=== PATIENT | female | born 1945 | race Caucasian/White ===

== ENCOUNTER → 2017-02-03 | Outpatient (CLI) | payer MEDICARE ==
[~2017-02-03] MED LIST: AUGMENTIN 500 M1 TAB PO; CLARITIN-D 24 H1 TAB PO; EC NAPROSYN500 MG PO; FLEXERIL10 MG PO; HYDROCODONE BIT1 T11 PO; LISINOPRIL10 MG PO; NAPROSYN500 MG PO; OCUVITE1 TA1 PO; PREVACID15 MG PO; TYLENOL W/CODEI1 TA2 PO; VERAPAMIL HCL240 M2 PO; VICODIN 500 MG-1 TAB PO
== END | disposition home or self-care (01) ==
LOC: CT 08:44
DX: M16.12 Unilateral primary osteoarthritis, left hip (principal); K44.9 Diaphragmatic hernia without obstruction or gangrene; K57.30 Diverticulosis of large intestine without perforation or abscess without bleeding; Z90.49 Acquired absence of other specified parts of digestive tract; Z90.710 Acquired absence of both cervix and uterus; Z90.89 Acquired absence of other organs

== ENCOUNTER → 2017-02-17 | Outpatient (CLI) | payer MEDICARE | END | disposition home or self-care (01) | LOC: RAD 11:21 | DX: Z13.820 Encounter for screening for osteoporosis (principal); R29.890 Loss of height; Z78.0 Asymptomatic menopausal state ==

== ENCOUNTER → 2019-03-07 | Outpatient (CLI) | payer MEDICARE | END | disposition home or self-care (01) | LOC: MAMMO 08:50 | DX: Z12.31 Encounter for screening mammogram for malignant neoplasm of breast (principal); M85.88 Other specified disorders of bone density and structure, other site; Z78.0 Asymptomatic menopausal state ==

== ENCOUNTER → 2019-08-19 | Outpatient (CLI) | payer MEDICARE | END | disposition home or self-care (01) | LOC: RAD 09:59 | DX: R20.0 Anesthesia of skin (principal); R20.2 Paresthesia of skin ==

== ENCOUNTER 2022-07-25 12:25 | Emergency (ER) | payer MEDICARE ==
[~2022-07-25] VITALS: Ht 167.6 cm; Wt 68.0 kg
[2022-07-25 13:50] LABS: BILIRUBIN Negative (Negative); BLOOD 2+ (Negative); CLARITY Cloudy (Clear); COLOR Yellow (Yellow); GLUCOSE 3+ (Negative); KETONE 2+ (Negative); LEUKO ESTERASE Negative (Negative); NITRITE Negative (Negative); PH 5.5 (4.5-8.0); SPECIFIC GRAVITY 1.025 (1.001-1.030)
[2022-07-25 14:01] LABS: BACTERIA 2+; MUCOUS 2+
[2022-07-25 14:22] LABS: HEMATOCRIT 44.5 % (37.0-47.0); MEAN CORPUSCULAR HGB 24.8 pg (27.0-31.0); PLATELET COUNT AUTOMATED 582 10*3/uL (130-400); RED BLOOD COUNT 5.56 10*6/uL (4.10-5.10); RED CELL DISTRI WIDTH 20.7 % (0-14.5); WHITE BLOOD COUNT 12.8 10*3/uL (4.8-10.8)
[2022-07-25 14:25] LABS: MANUAL DIFF REFLEX YES
[2022-07-25 14:36] LABS: ACT PARTIAL THROMBO TIME 27.6 SECONDS (20.0-32.1); INTERNATIONAL NORM RATIO 1.2 (2.0-3.5)
[2022-07-25 14:47] LABS: ALKALINE PHOSPHATASE 111 U/L (46-116); BASOPHILS 1 % (0-1); BUN 11 mg/dl (9-23); CHLORIDE 98 mmol/L (98-107); LIPASE 22 U/L (12-53); POTASSIUM 2.9 mmol/L (3.4-5.1); SGPT/ALT 8 U/L (10-49); TOTAL CELLS COUNTED 100 #CELLS; TOTAL PROTEIN 8.3 gm/dL (6.0-8.0)
[2022-07-25 14:48] LABS: PLATELET SUFFICIENCY HIGH (NORMAL)
[2022-07-25 21:06] VITALS: BP 200/100
== END 2022-07-26 02:23 | disposition short-term general hospital (02) ==
LOC: ED 12:25
PROVIDERS: Emergency Medicine
DX: A41.9 Sepsis, unspecified organism (principal); R65.20 Severe sepsis without septic shock; K65.1 Peritoneal abscess; R11.2 Nausea with vomiting, unspecified; Z79.899 Other long term (current) drug therapy; Z90.711 Acquired absence of uterus with remaining cervical stump; Z90.49 Acquired absence of other specified parts of digestive tract

== ENCOUNTER 2023-01-12 18:36 | Emergency (ER) | payer MEDICARE ==
[~2023-01-12] VITALS: Ht 167.6 cm; Wt 76.2 kg
[~2023-01-12 18:36] MED LIST changes: +COREG6.25 MG PO; +LIPITOR10 MG PO; +METOCLOPRAMIDE5 MG PO; +NEXIUM40 MG PO; +NORVASC5 MG PO; +Ondansetron4 MG PO
[2023-01-12 19:27] VITALS: BP 168/98
[2023-01-12 19:59] LABS: HEMATOCRIT 44.7 % (37.0-47.0); MEAN CELL VOLUME 83.9 fl (81.0-99.0); MEAN CORPUSCULAR HGB 27.6 pg (27.0-31.0); MEAN CORPUSCULAR HGB CONC 32.9 g/dl (33.0-37.0); MEAN PLATELET VOLUME 9.7 fl (9.6-12.3); PLATELET COUNT AUTOMATED 538 10*3/uL (130-400); RED BLOOD COUNT 5.33 10*6/uL (4.10-5.10); RED CELL DISTRI WIDTH 14.1 % (0-14.5); WHITE BLOOD COUNT 12.4 10*3/uL (4.8-10.8)
[2023-01-12 20:10] LABS: MANUAL DIFF REFLEX YES
[2023-01-12 20:20] LABS: BASOPHILS 1 % (0-1); TOTAL CELLS COUNTED 100 #CELLS
[2023-01-12 20:21] LABS: PLATELET SUFFICIENCY HIGH (NORMAL)
[2023-01-12 20:22] LABS: ALKALINE PHOSPHATASE 121 U/L (46-116); BUN 8 mg/dl (9-23); BURR CELLS FEW; CHLORIDE 105 mmol/L (98-107); LIPASE 26 U/L (12-53); OVALOCYTES FEW; POTASSIUM 3.4 mmol/L (3.4-5.1); SGPT/ALT 10 U/L (5-49); TOTAL PROTEIN 7.5 gm/dL (6.0-8.0)
[2023-01-12 20:23] LABS: ATYPICAL LYMPHS 3 % (0-0)
[2023-01-12 21:11] LABS: BILIRUBIN Negative (Negative); BLOOD Negative (Negative); CLARITY Clear (Clear); COLOR Dark Yellow (Yellow); GLUCOSE Negative (Negative); KETONE 2+ (Negative); LEUKO ESTERASE Trace (Negative); NITRITE Negative (Negative); PH 6.5 (4.5-8.0)
[2023-01-12 21:18] LABS: URINE AMPHETAMINES Negative (1000ng/ml); URINE BARBITURATES Negative (200ng/ml); URINE BENZODIAZEPINES Negative (200ng/ml); URINE CANNABINOIDS (THC) Negative (50ng/ml); URINE COCAINE Negative (300ng/ml); URINE METHADONE Negative (300ng/ml); URINE OPIATES Negative (300ng/ml); URINE PHENCYCLIDINE Negative (25ng/ml)
[2023-01-12 21:22] LABS: BACTERIA 3+; EPITHELIAL CELLS 0-2; MUCOUS 2+
[2023-01-12] MEDS ORDERED: CIPRO500 MG PO (22:42)
== END 2023-01-12 22:53 | disposition home or self-care (01) ==
LOC: ED 18:36
PROVIDERS: Internal Medicine
DX: N39.0 Urinary tract infection, site not specified (principal); I10 Essential (primary) hypertension; R11.10 Vomiting, unspecified; R10.2 Pelvic and perineal pain; Z90.89 Acquired absence of other organs; Z90.711 Acquired absence of uterus with remaining cervical stump; Z90.49 Acquired absence of other specified parts of digestive tract; Z98.890 Other specified postprocedural states; Z79.899 Other long term (current) drug therapy

== ENCOUNTER → 2024-05-03 | Outpatient (CLI) | payer MEDICARE ==
[~2024-05-03] MED LIST changes: +CIPRO500 MG PO; +IOHEXOL 350 MG/ML 100 ML VIAL IV ONE; +SODIUM CHLORIDE 0.9% 100 ML BAG IV ONE
== END | disposition home or self-care (01) ==
LOC: CT 15:00
PROVIDERS: ATTEND Nurse Practitioner
DX: K57.30 Diverticulosis of large intestine without perforation or abscess without bleeding (principal); K44.9 Diaphragmatic hernia without obstruction or gangrene; N28.1 Cyst of kidney, acquired; M79.89 Other specified soft tissue disorders; Z98.890 Other specified postprocedural states